=== PATIENT | male | born 1970 | race Two or more races ===

== ENCOUNTER 2024-09-13 14:41 | Inpatient (IN) | payer OTHER ==
[~2024-09-13] VITALS: Ht 167.6 cm; Wt 86.0 kg
--- NOTE | 2024-09-13 16:07 | ED.PDOC ---
HPI Comments 54 y/o M, accompanied by federal mirza presents to the ED for CC of chest pain. Patient states, that he has been experiencing substernal non-radiating chest pain x4days. Federal mirza report, patient was previously at [facility] when his location became compromised; and family began to try and contact patient. Patient was due to have a procedure at [facility] for symptoms; unknown of what kind. Patient denies palpitations, shortness of breath, headache, or dizziness. No other symptoms or modifying factors present at this time. Chief Complaint: Chest Pain Time Seen by MD: 16:00 Reviewed Notes: Nurses Notes, Medications, Allergies Allergies: Coded Allergies: NO KNOWN ALLERGIES (Unverified , 09/13/24) Information Source: Patient Mode of Arrival: Ambulatory Severity: Moderate Timing: Days Duration: Since onset Prehospital treatment: None Location: Substernal Radiation: No Radiation Onset: At Rest Cardiac Risk Factors: None PE Risk Factors: None History of: None Modifying Factors: Nothing Associated Signs and Symptoms: None Past Medical History PAST MEDICAL HISTORY: Denies Surgical History: Denies all surgeries Family History Family History: Unknown Social History Smoker: Non-Smoker Alcohol: Denies ETOH Use Drugs: Denies Drug Use Lives In: Other Constitutional: denies: chills, diaphoresis, fatigue, fever, malaise, sweats, weakness, others EENTM: denies: blurred vision, double vision, ear bleeding, ear discharge, ear drainage, ear pain, ear ringing, eye pain, eye redness, hearing loss, mouth pain, mouth swelling, nasal discharge, nose bleeding, nose congestion, nose pain, photophobia, tearing, throat pain, throat swelling, voice changes, others Respiratory: denies: cough, hemoptysis, orthopnea, SOB at rest, shortness of breath, SOB with excertion, stridor, wheezing, others Cardiovascular: reports: chest pain; denies: dizzy spells, diaphoresis, Dyspnea on exertion, edema, irregular heart beat, left arm pain, lightheadedness, palpitations, PND, syncope, others Gastrointestinal: denies: abdomen distended, abdominal pain, blood streaked bowels, constipated, diarrhea, dysphagia, difficulty swallowing, hematemesis, melena, nausea, poor appetite, poor fluid intake, rectal bleeding, rectal pain, vomiting, others Genitourinary: denies: burning, dysuria, flank pain, frequency, hematuria, incontinence, penile discharge, penile sore, pain, testicle pain, testicle swelling, urgency, others Neurological: denies: dizziness, fainting, headache, left sided numbness, left sided weakness, numbness, paresthesia, pre-existing deficit, right sided numbness, right sided weakness, seizure, speech problems, tingling, tremors, weakness, others Musculoskeletal: denies: back pain, gout, joint pain, joint swelling, muscle pain, muscle stiffness, neck pain, others Integumetry: denies: bruises, change in color, change in hair/nails, dryness, laceration, lesions, lumps, rash, wounds, others Allergic/Immunocompromised: denies: Difficulty Healing, Frequent Infections, Hives, Itching, others Hematologic/Lymphatic: denies: anemia, blood clots, easy bleeding, easy bruising, swollen glands, others Endocrine: denies: excessive hunger, excessive sweating, excessive thirst, excessive urination, flushing, intolerance to cold, intolerance to heat, unexplained weight gain, unexplained weight loss, others Psychiatric: denies: anxiety, bipolar disorder, depression, hopeless, panic disorder, schizophrenia, sleepless, suicidal, others All Other Systems: Reviewed and Negative Physical Exam General Appearance: Moderate Distress HEENT: Normal ENT Inspection, PERRL/EOMI, Other (Toothache) Neck: Full Range of Motion, Non-Tender, Normal, Normal Inspection Respiratory: Chest Non-Tender, Lungs Clear, No Accessory Muscle Use, No Respiratory Distress, Normal Breath Sounds Cardiovascular: No Edema, No JVD, No Murmur, No Gallop, Normal Peripheral Pulses, Regular Rate/Rhythm Breast Exam: Deferred Gastrointestinal: No Organomegaly, Non Tender, No Pulsatile Mass, Normal Bowel Sounds, Soft Genitalia: Deferred Pelvic: Deferred Rectal: Deferred Extremities: No calf tenderness, Normal capillary refill, Normal inspection, Normal range of motion, Non-tender, No pedal edema Neurologic: Alert, dealer relationship manager II-XII nml as Tested, No Motor Deficits, Normal Affect, Normal Mood, No Sensory Deficits Cerebellar Function: Normal Reflexes: Normal Skin: Dry, Normal Color, Warm Peripheral Pulses: 1+ carotid (R), 1+ carotid (L) Lymphatic: No Adenopathy EKG EKG : Pulse Rate (adult): 62 [place]: Normal Cardiac Rhythm: NSR Hypertrophy: LAE ST: Old, Inf, Infarct Was a procedure done? Was a procedure done?: No CP Differential Dx Differential Diagnosis: Angina, Anxiety / Panic Attack, Electrolyte Disorder, [place] Differential Diagnosis: Angina, Chest Wall Pain, Costochondritis, Esophageal reflux/spasm, Gastritis, Myocardial Infarction, Pneumonia X-Ray, Labs, Meds, VS Vital Signs Date Time Temp Pulse Resp B/P (MAP) Pulse Ox O2 Delivery O2 Flow Rate FiO2 09/13/24 17:14 62 09/13/24 14:55 62 09/13/24 14:42 97.6 66 14 124/85 (98) 96 97.6 Lab Test 09/13/24 17:08 09/13/24 16:07 Range/Units Troponin I High Sensitivity 244 *H 230 *H </=54 ng/L White Blood Count 9.5 4.4-10.8 10^3/uL Red Blood Count 5.81 4.5-5.90 10^6/uL Hemoglobin 17.8 H 13.5-17.5 g/dL Hematocrit 50.9 41.0-53.0 % Mean Corpuscular Volume 87.6 80.0-100.0 fL Mean Corpuscular Hemoglobin 30.7 28.0-32.0 pg Mean Corpuscular Hemoglobin Concent 35.1 32.0-36.0 g/dL Red Cell Distribution Width 13.1 11.8-14.3 % Platelet Count 264 140-450 10^3/uL Mean Platelet Volume 8.0 6.9-10.8 fL Neutrophils (%) (Auto) 57.7 37.0-80.0 % Lymphocytes (%) (Auto) 31.0 10.0-50.0 % Monocytes (%) (Auto) 8.5 0.0-12.0 % Eosinophils (%) (Auto) 2.3 0.0-7.0 % Basophils (%) (Auto) 0.5 0.0-2.0 % Neutrophils # (Auto) 5.5 1.6-8.6 10 ^3/uL Lymphocytes # (Auto) 2.9 0.4-5.4 10 ^3/uL Monocytes # (Auto) 0.8 0-1.3 10 ^3/uL Eosinophils # (Auto) 0.2 0-0.8 10 ^3/uL Basophils # (Auto) 0 0-0.2 10 ^3/uL Nucleated Red Blood Cells 0.2 % Prothrombin Time Pending Prothrombin Time INR Pending Activated Partial Thromboplast Time Pending Sodium Level 137 136-145 mmol/L Potassium Level 4.2 3.5-5.1 mmol/L Chloride Level 109 H 98-107 mmol/L Carbon Dioxide Level 17 L 20-31 mmol/L Anion Gap 11 5-15 Blood Urea Nitrogen 14 9-23 mg/dL Creatinine 0.94 0.700-1.30 mg/dL Glomerular Filtration Rate Calc 97 >90 mL/min BUN/Creatinine Ratio 14.9 10.0-20.0 Serum Glucose 116 H 74-106 mg/dL Calcium Level 10.1 8.7-10.4 mg/dL Magnesium Level 2.4 1.6-2.6 mg/dL Total Bilirubin 1.0 0.2-1.0 mg/dL Aspartate Amino Transferase (AST) 51 H 13-40 U/L Alanine Aminotransferase (ALT) 55 H 7-40 U/L Alkaline Phosphatase 102 46-116 U/L Total Protein 8.5 H 5.7-8.2 g/dL Albumin 4.8 3.2-4.8 g/dL Current Medications Medications (Trade) Dose Ordered Sig/Joycelyn Route Start Time Stop Time Status Last Admin Aspirin 162 mg ONCE ONCE PO 09/13/24 17:15 09/13/24 17:16 DC 09/13/24 17:44 Sodium Chloride 1,000 ml @ 150 mls/hr Q6H40M ONCE IV 09/13/24 17:15 09/13/24 23:54 09/13/24 17:44 X-Ray, Labs, Meds, VS Comment Course in the emergency department eventful patient came in because of chest pain is present in her escorted by police department with hammer Chest x-ray is normal EKG shows normal sinus rhythm at 62 Troponin 230 and 244 CBC normal INR pending Magnesium 2.4 Liver enzymes elevated Laborer to be consulted Time of 1ST Reevaluation: 16:30 Reevaluation 1ST: Unchanged Time of 2ND Reevaluation: 18:54 Reevaluation 2ND: Unchanged Patient Education/Counseling: Diagnosis, Treatment, Prognosis Family Education/Counseling: Diagnosis, Treatment, Prognosis, No Family Present Departure 1 Departure Time of Disposition: 18:54 Impression: Primary Impression: Chest pain Qualified Codes: I20.0 - Unstable angina Additional Impressions: Acute coronary syndrome with high troponin Tooth pain Ruled Out: Pneumonia Disposition: ADMITTED INPATIENT Admit to: Tele Condition: Guarded Critical Care Note Critical Care Time?: No Stability Stability form required: Yes Unstable for transfer: ICU, CCU, PCU, GIDEON, Telemetry monitoring (Telemetry m onitoring required), Requires medication (Requires Med for stabilization) Heart Score Heart Score: Heart Score Response (Comments) Value History Moderate Suspicious 1 EKG Normal 0 Age 45-64 1 Risk Factors 1 or 2 risk factors 1 Troponin >3 x's Normal limit 2 Total 5 I personally scribed for MONIE CALLAHAN MD ([email or web address]) on 09/13/24 at 16:07. Electronically submitted by Maye Montoya ([email or web address]). I personally scribed for MONIE CALLAHAN MD ([email or web address]) on 09/13/24 at 16:44. Electronically submitted by Maye Montoya ([email or web address]). MONIE CALLAHAN MD Sep 13, 2024 16:07
[2024-09-13 17:38] LABS: Albumin 4.8 g/dL (3.2-4.8); Alkaline Phosphatase 102 U/L (46-116); Anion Gap 11 (5-15); BUN/Creatinine Ratio 14.9 (10.0-20.0); Blood Urea Nitrogen 14 mg/dL (9-23); Calcium 10.1 mg/dL (8.7-10.4); Magnesium 2.4 mg/dL (1.6-2.6); Potassium 4.2 mmol/L (3.5-5.1); Sodium 137 mmol/L (136-145)
[2024-09-13 17:42] LABS: Alanine Aminotransferase 55 U/L (7-40); Aspartate Aminotransferase 51 U/L (13-40); Carbon Dioxide 17 mmol/L (20-31); Chloride 109 mmol/L (98-107); Glucose 116 mg/dL (74-106); Total Protein 8.5 g/dL (5.7-8.2)
[2024-09-13] MEDS: SODIUM CHLORIDE 0.9% 1,000 ML IV ONE (17:44)
[2024-09-13] MEDS: ASPirin 81 mg TAB PO ONE (17:44)
[2024-09-13 17:47] LABS: Basophils # (auto) 0 10 ^3/uL (0-0.2); Basophils % (auto) 0.5 % (0.0-2.0); Eosinophils # (auto) 0.2 10 ^3/uL (0-0.8); Eosinophils % (auto) 2.3 % (0.0-7.0); Hematocrit 50.9 % (41.0-53.0); Hemoglobin 17.8 g/dL (13.5-17.5); Lymphocytes # (auto) 2.9 10 ^3/uL (0.4-5.4); Mean Corpuscular Hemoglobin 30.7 pg (28.0-32.0); Mean Corpuscular Hgb Conc. 35.1 g/dL (32.0-36.0); Mean Corpuscular Volume 87.6 fL (80.0-100.0); Monocytes # (auto) 0.8 10 ^3/uL (0-1.3); Monocytes % (auto) 8.5 % (0.0-12.0); Neutrophils # (auto) 5.5 10 ^3/uL (1.6-8.6); Neutrophils % (auto) 57.7 % (37.0-80.0); Nucleated Red Blood Cells % 0.2 %; Platelet Count (auto) 264 10^3/uL (140-450); Red Blood Cells 5.81 10^6/uL (4.5-5.90); Red Cell Distribution Width 13.1 % (11.8-14.3); White Blood Cell 9.5 10^3/uL (4.4-10.8)
--- NOTE | 2024-09-13 17:51 | DVH ---
EXAM: XR Chest, 2 Views CLINICAL INDICATION: cp TECHNIQUE: Frontal and lateral views of the chest. COMPARISON: None FINDINGS: LUNGS AND PLEURAL SPACES: Unremarkable. No consolidation. No pneumothorax. HEART: Unremarkable. No cardiomegaly. MEDIASTINUM: Unremarkable. Normal mediastinal contour. BONES/JOINTS: Unremarkable. No acute fracture. OTHER FINDINGS: . None. IMPRESSION: No acute cardiopulmonary process.
--- NOTE | 2024-09-13 18:39 | ECG ---
[facility] Test Date: 2024-09-13 Test Time: 14:53:40 Pat Name: RAMON KOEHLER Department: ED Room: 0235T Gender: M City Recorder: HEIDI : 1970 Requested By: MONIE CALLAHAN Order Number: [id number] Reading MD: Jake Lambert Measurements Intervals [place] Rate: 62 P: 41 OK: 155 QRS: -45 QRSD: 106 T: -36 QT: 422 QTc: 429 Interpretive Statements Sinus rhythm Consider left atrial enlargement Inferior infarct, age indeterminate Consider anterolateral infarct Electronically Signed On 09-14-2024 8:37:09 PDT by Jake Lambert Please click the below link to view image of tracing.
[2024-09-13] MEDS ORDERED: ACETAMINOPHEN 325 MG TAB PO PRN (19:30)
[2024-09-13] MEDS ORDERED: ONDANSETRON HCL 4 MG/2 ML VIAL IV PRN (19:30)
[2024-09-13 19:32] VITALS: PULSE 76; RESP 16; O2SAT 98
[2024-09-13 20:01] LABS: INR 1.04 (0.9-1.15); Partial Thromboplastin Time 32.4 SEC (24.5-34.5)
[2024-09-13 20:04] LABS: LDL Cholesterol 86 mg/dL (< 100)
[2024-09-13 20:05] LABS: Cholesterol 133 mg/dL (< 200)
[2024-09-13 20:08] LABS: HDL Cholesterol 29 mg/dL (40-59); Triglycerides 220 mg/dL (< 150)
[2024-09-13] MEDS ORDERED: NITROGLYCERIN 0.4 MG SL TAB SL PRN (21:00)
[2024-09-13] MEDS ORDERED: MORPHINE SULFATE INJ 2 MG/ml SYRG IV PRN (21:00)
[2024-09-13 23:14] VITALS: BP 116/78; PULSE 62; RESP 19; TEMP 98.5; O2SAT 96
--- NOTE | 2024-09-13 23:36 | DVHINCON2 ---
Date of service: Sep 13, 2024 Referring Physician Marcelo Reason for Consultation Chest pain, Elevated troponin History of Present Illness This is a 54 year old male with no significant medical history who was brought in by EMS accompanied by S/O due to complaints of chest pain x 4 days. Federal guards at bedside report, patient was at [facility] when his location became compromised and the patient's family began attempting to contact the patient. EKG is NSR at 62. CBC normal. TROP 230 > 244 > 224. Chest x-ray showed NAD. Patient was admitted to the hospital. I am asked to consult on this patient. Allergies: Coded Allergies: NO KNOWN ALLERGIES (Unverified , 09/13/24) Current Medications Current Medications Medications (Trade) Dose Ordered Sig/Joycelyn Route PRN Reason Start Time Stop Time Status Last Admin Aspirin 81 mg DAILY PO 09/14/24 10:00 09/13/24 20:44 DC Ondansetron HCl (Zofran) 4 mg Q4HP PRN IV NAUSEA / VOMITING 09/13/24 19:30 09/13/24 20:44 DC Acetaminophen (Tylenol Tablet) 650 mg Q6HP PRN PO PAIN SCALE 1-3 OR TEMP>100.4 09/13/24 19:30 09/13/24 20:44 DC Nitroglycerin (Ntrostat Sublingual) 0.4 mg Q5MINP PRN SL FOR CHEST PAIN 09/13/24 21:00 Morphine Sulfate 2 mg Q30M PRN IV FOR CHEST PAIN 09/13/24 21:00 Enoxaparin Sodium (Lovenox) 40 mg DAILY SC 09/14/24 10:00 Aspirin 81 mg DAILY PO 09/14/24 10:00 Metoprolol Succinate (Toprol Xl) 25 mg DAILY PO 09/14/24 10:00 Review of Systems Constitutional: denies: chills, diaphoresis, fatigue, fever, malaise, sweats, weakness, others EENTM: denies: blurred vision, double vision, ear bleeding, ear discharge, ear drainage, ear pain, ear ringing, eye pain, eye redness, hearing loss, mouth pain, mouth swelling, nasal discharge, nose bleeding, nose congestion, nose pain, photophobia, tearing, throat pain, throat swelling, voice changes, others Respiratory: denies: cough, hemoptysis, orthopnea, SOB at rest, shortness of breath, SOB with excertion, stridor, wheezing, others Cardiovascular: reports: chest pain; denies: dizzy spells, diaphoresis, Dyspnea on exertion, edema, irregular heart beat, left arm pain, lightheadedness, palpitations, PND, syncope, others Gastrointestinal: denies: abdomen distended, abdominal pain, blood streaked bowels, constipated, diarrhea, dysphagia, difficulty swallowing, hematemesis, melena, nausea, poor appetite, poor fluid intake, rectal bleeding, rectal pain, vomiting, others Genitourinary: denies: burning, dysuria, flank pain, frequency, hematuria, incontinence, penile discharge, penile sore, pain, testicle pain, testicle swelling, urgency, others Neurological: denies: dizziness, fainting, headache, left sided numbness, left sided weakness, numbness, paresthesia, pre-existing deficit, right sided numbness, right sided weakness, seizure, speech problems, tingling, tremors, weakness, others Musculoskeletal: denies: back pain, gout, joint pain, joint swelling, muscle pain, muscle stiffness, neck pain, others Integumetry: denies: bruises, change in color, change in hair/nails, dryness, laceration, lesions, lumps, rash, wounds, others Allergic/Immunocompromised: denies: Difficulty Healing, Frequent Infections, Hives, Itching, others Hematologic/Lymphatic: denies: anemia, blood clots, easy bleeding, easy bruising, swollen glands, others Endocrine: denies: excessive hunger, excessive sweating, excessive thirst, excessive urination, flushing, intolerance to cold, intolerance to heat, unexplained weight gain, unexplained weight loss, others Psychiatric: denies: anxiety, bipolar disorder, depression, hopeless, panic disorder, schizophrenia, sleepless, suicidal, others All Other Systems: Reviewed and Negative Vital Signs Vital Signs Date Time Temp Pulse Resp B/P (MAP) Pulse Ox O2 Delivery O2 Flow Rate FiO2 09/13/24 19:32 76 16 127/91 (103) 98 09/13/24 19:32 Room Air* 0 21 09/13/24 14:42 97.6 97.6 Physical Exam GENERAL: Alert and oriented x 3. No acute distress. EYES: PERRL, EOMI. Anicteric. HENT: Moist mucous membranes. LUNGS: Clear to auscultation bilaterally. CARDIOVASCULAR: Regular rate and rhythm. ABDOMEN: Soft, nontender and nondistended. EXTREMITIES: No edema. NEUROLOGIC: No focal neurological deficits. SKIN: Warm, dry. Labs/Diagnostic Data Labs Test 09/13/24 19:18 09/13/24 16:07 Range/Units Prothrombin Time 11.0 9.3-11.8 sec Prothrombin Time INR 1.04 0.9-1.15 Activated Partial Thromboplast Time 32.4 24.5-34.5 SEC Troponin I High Sensitivity 224 *H </=54 ng/L Triglycerides Level 220 H < 150 mg/dL Cholesterol Level 133 < 200 mg/dL LDL Cholesterol 86 < 100 mg/dL HDL Cholesterol 29 L 40-59 mg/dL Thyroid Stimulating Hormone (TSH) 1.78 0.55-4.78 uIU/mL White Blood Count 9.5 4.4-10.8 10^3/uL Red Blood Count 5.81 4.5-5.90 10^6/uL Hemoglobin 17.8 H 13.5-17.5 g/dL Hematocrit 50.9 41.0-53.0 % Mean Corpuscular Volume 87.6 80.0-100.0 fL Mean Corpuscular Hemoglobin 30.7 28.0-32.0 pg Mean Corpuscular Hemoglobin Concent 35.1 32.0-36.0 g/dL Red Cell Distribution Width 13.1 11.8-14.3 % Platelet Count 264 140-450 10^3/uL Mean Platelet Volume 8.0 6.9-10.8 fL Neutrophils (%) (Auto) 57.7 37.0-80.0 % Lymphocytes (%) (Auto) 31.0 10.0-50.0 % Monocytes (%) (Auto) 8.5 0.0-12.0 % Eosinophils (%) (Auto) 2.3 0.0-7.0 % Basophils (%) (Auto) 0.5 0.0-2.0 % Neutrophils # (Auto) 5.5 1.6-8.6 10 ^3/uL Lymphocytes # (Auto) 2.9 0.4-5.4 10 ^3/uL Monocytes # (Auto) 0.8 0-1.3 10 ^3/uL Eosinophils # (Auto) 0.2 0-0.8 10 ^3/uL Basophils # (Auto) 0 0-0.2 10 ^3/uL Nucleated Red Blood Cells 0.2 % Sodium Level 137 136-145 mmol/L Potassium Level 4.2 3.5-5.1 mmol/L Chloride Level 109 H 98-107 mmol/L Carbon Dioxide Level 17 L 20-31 mmol/L Anion Gap 11 5-15 Blood Urea Nitrogen 14 9-23 mg/dL Creatinine 0.94 0.700-1.30 mg/dL Glomerular Filtration Rate Calc 97 >90 mL/min BUN/Creatinine Ratio 14.9 10.0-20.0 Serum Glucose 116 H 74-106 mg/dL Calcium Level 10.1 8.7-10.4 mg/dL Magnesium Level 2.4 1.6-2.6 mg/dL Total Bilirubin 1.0 0.2-1.0 mg/dL Aspartate Amino Transferase (AST) 51 H 13-40 U/L Alanine Aminotransferase (ALT) 55 H 7-40 U/L Alkaline Phosphatase 102 46-116 U/L Total Protein 8.5 H 5.7-8.2 g/dL Albumin 4.8 3.2-4.8 g/dL Assessment Chest pain. Elevated troponin. HTN. Plan/Recommendation I agree with your ongoing assessment and care of plan. Aspirin, Metoprolol. DVT prophylactics. Nitro SL. Morphine for pain management. Additional plan as per the hospital course. A total of 45 minutes was spent reviewing the patient record, examining the patient, making a diagnostic and therapeutic plan, discussing this plan with medical personnel, following up on diagnostic studies and following the patient for clinical stability excluding any and all procedures. At least 50% of this time was spent in direct, [id number] contact. Plan discussed with: Patient YUDI DANGELO MD Sep 13, 2024 22:51
[2024-09-14] VITALS (11 sets, daily range): BP systolic 108–124; BP diastolic 69–78; PULSE 54–64; RESP 14–20; TEMP 97.5–98.3; O2SAT 95–98
[2024-09-14] MEDS: METOPROLOL SUCCINATE XL 50 MG TAB PO SCH (09:31)
[2024-09-14] MEDS: ASPirin 81 mg TAB PO SCH (09:31)
[2024-09-14] MEDS: ENOXAPARIN SOD 40 MG/0.4 ML SYRINGE SC SCH (09:31)
[2024-09-14] MEDS ORDERED: ASPirin 81 mg TAB PO SCH (10:00)
--- NOTE | 2024-09-14 12:58 | DVHHP ---
ADMIT DATE: 09/14/2024 ATTENDING PHYSICIAN: Kevyn Robertson MD CHIEF COMPLAINT: Chest pain. HISTORY OF PRESENT ILLNESS: This is a 54-year-old male, P inmate, who was initially brought to [facility] Emergency Room with complaints of chest pain after which he was admitted. He had workup, which included troponins were slightly elevated. EKG showed inverted T-waves laterally and MyoScan showed reversible defect. The patient was scheduled for an angiogram today, but due to a breach in security, the patient was discharged from [facility]. I now was informed by the [facility] that he was taken to [facility]. The patient is now admitted for continued management. He does not have any active chest pain at this time. He denies any cough, shortness of breath, no fever. 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 He has hypertension. He has BPH and GERD. PAST SURGICAL HISTORY: Denies ever having coronary stents placed. FAMILY HISTORY: Mother has heart disease. SOCIAL HISTORY: He has 10-pack years of smoking. Occasional alcohol use. Denies any drug use. He is . He has 4 children. He has been incarcerated 2 years with 1 month left to go. REVIEW OF SYSTEMS: GENERAL: Denies any weight changes. HEENT: Denies any loss of consciousness or headache. CARDIOVASCULAR: As per HPI. RESPIRATORY: Denies cough, shortness of breath, or hemoptysis. GI: Denies nausea or vomiting. : Noncontributory. NEURO: Denies any focal deficits. PHYSICAL EXAM: VITAL SIGNS: His temperature is 98.5, blood pressure 116/78, heart rate of 62, respiratory rate of 19, O2 saturation is 96% on room air. HEENT: Normocephalic, anicteric sclerae, pink conjunctivae. EOMI. NECK: Supple. No JVD, mass, or bruit. CHEST: Good equal excursion bilateral, nontender. HEART: S1 and S2 regular, without click, murmur, or gallop. LUNGS: Good equal air exchange bilateral. Clear to auscultation. ABDOMEN: Soft, nondistended, nontender. No mass, guarding, or rebound. NEUROLOGIC: He is awake, alert, and oriented x 4 without any focal deficits. LAB DATA: WBC 9.5, hemoglobin 17.8, and platelets 264. Sodium 137, potassium is 4.2, BUN , creatinine 0.9, glucose of 116. Troponin is 244 and repeat is 224. LDL is 86 and TSH is 1.78. Chest x-ray, no acute cardiopulmonary disease. EKG without any acute changes. ASSESSMENT: * Chest pain, rule out HI. * Acute coronary syndrome. PLAN: Admit to tele. This is stable. Regular diet. IV Hep-Lock. Cardiology consult. Aspirin 81 mg daily, Lovenox, metoprolol and analgesics. MD NICOLLE Duff/KRISTIAN/MACY TID: [id number] RECEIPT: [id number]
[2024-09-14] MEDS: HEPARIN IN NS 1000Units/500mL 1,500 ML ONE (17:06)
[2024-09-14] MEDS: IODIXANOL 320MG/ML 100ML BTL IV ONE (17:06)
[2024-09-14] MEDS: ANGIOMAX 250 MG VIAL IV ONE (17:12)
[2024-09-14] MEDS: VERAPAMIL 2.5MG/ML INJ 2ML VIAL IV ONE (17:12)
[2024-09-14] MEDS: fentaNYL CITRATE 100 MCG/2 ML VL ONE (17:12)
[2024-09-14] MEDS: SODIUM CHL 0.9% 0 ML ONE (17:13)
[2024-09-14] MEDS: LIDOCAINE 2%HCL (LOCAL ANESTH.) INJ 20ML MDV ONE (17:13)
[2024-09-14] MEDS: MIDAZOLAM HCL 2MG/2ML 2ml VIAL (1mg/ml) ONE (17:13)
[2024-09-14] MEDS: HEPARIN SODIUM (PORCINE) 5000 UNITS/ML 1ML VIAL ONE (17:18)
--- NOTE | 2024-09-14 21:54 | DVHPN2 ---
Progress Note - Dictate Date Seen: September 14, 2024 Medical Necessity Reason Pt with a Central, PICC or Fol: No Subjective Patient was seen and evaluated in follow up. Patient is complaining of chest pain. Guards are at bedside. Patient underwent coronary angio, was found to have critical triple vessel disease. bradycardic in the 50's. Telemetry reviewed. vital signs Vital Sign Date Time Temp Pulse Resp B/P (MAP) Pulse Ox O2 Delivery O2 Flow Rate FiO2 09/14/24 09:31 64 124/73 09/14/24 09:00 97.8 20 97 97.8 09/14/24 08:00 Room Air* 0 21 Total Intake and Output 09/13/24 09/13/24 09/14/24 15:00 23:00 07:00 Intake Total 240 ml Balance 240 ml medications Current Medications Medications Dose Ordered Sig/Joycelyn Route Start Time Stop Time Status Last Admin Dose Admin Nitroglycerin 0.4 mg Q5MINP PRN SL 09/13/24 21:00 Morphine Sulfate 2 mg Q30M PRN IV 09/13/24 21:00 Enoxaparin Sodium 40 mg DAILY SC 09/14/24 10:00 09/14/24 09:31 40 MG Aspirin 81 mg DAILY PO 09/14/24 10:00 09/14/24 09:31 81 MG Metoprolol Succinate 25 mg DAILY PO 09/14/24 10:00 09/14/24 09:31 25 MG objective GENERAL: Alert and oriented x 3. No acute distress. EYES: PERRL, EOMI. Anicteric. HENT: Moist mucous membranes. LUNGS: Clear to auscultation bilaterally. CARDIOVASCULAR: Regular rate and rhythm. ABDOMEN: Soft, nontender and nondistended. EXTREMITIES: No edema. NEUROLOGIC: No focal neurological deficits. SKIN: Warm, dry. laboratory and microbiology Laboratory Tests 09/13/24 16:07 Test 09/13/24 16:07 Range/Units Serum Glucose 116 H 74-106 mg/dL Problem List Chest pain. Elevated troponin. HTN. Critical triple vessel disease. Assessment/Plan Continued all current supportive medical care. [place] for pain management. Aspirin, Metoprolol. DVT prophylactics. Nitro SL. Additional plan as per the hospital course. Plan discussed with: Patient YUDI DANGELO MD September 14, 2024 12:20
--- NOTE | 2024-09-14 23:59 | DVHOP ---
DATE OF SURGERY: 09/14/2024 TECHNIQUE PERFORMED: * Emergency case. * Ultrasound of right radial artery. * Management of conscious sedation. * Ultrasound-guided insertion of 6-Namibian arterial line in the right radial artery. * Left heart cath. * Left ventriculogram. * Cheesh-Na selective left and right coronary angiography. COMPLICATIONS: None. ASSISTANTS: Assisted by our staff here is Bernard Medina and other study assistant is Karolyn. INDICATIONS: The patient has a large reversible ischemia noted in the anterior apical wall and also involving the lateral wall. DESCRIPTION OF PROCEDURE: The procedure risks, benefits discussed in a standard manner. The patient had been brought to our lab. There was a right radial area thoroughly cleaned with soap and Betadine and 6-Namibian arterial line had been placed after doing ultrasound and TIG catheter 5-Namibian 4.0 was passed, unable to engage well in the left groin system. So now we have obtained a right coronary angiography subsequently now with the help of the JL3.5 guiding catheter. Left coronary angiography was done subsequently with the help of pigtail catheter and complete left heart cath had been done. The left ventriculogram was done in the right anterior oblique view, total of 20 mL dye. Post LV-gram, left ventricular angiography had been performed with the help of pull-through technique. Aortic pressure was also performed. J-wire was passed. The pigtail catheter also has been discontinued. Procedure completed. IMPRESSION: * The patient's right coronary artery 100% chronically occluded in region. SONNY grade 0 flow has been noted. There is also poor little filling of the mid region of the right coronary artery followed by SONNY grade 0 flow. The patient's left main is normal. * The left main divided in the left anterior descending artery and moderately large circumflex artery. At the left anterior descending artery at the junction of the proximal and mid region is narrowed in the range of 99%. SONNY grade 2 flow has been noted. * The obtuse marginal artery has been circumferentially divided into circumflex and obtuse marginal artery. The obtuse marginal artery has been normal. The circumflex artery has underlying critical narrowing has been noted from the site of the bifurcation to almost 15 mm in length. There is also extensive left coronary system all the way to distal region of the right coronary artery. There is excellent filling of the posterior descending artery and posterolateral branch with the help of the left coronary artery, which is retrograde. The ejection fraction of the left ventricle is in the range of 40%. Inferior wall hypokinesis has been noted. CONCLUSION: * This patient with critical triple-vessel coronary artery disease has been described above. * Ejection fraction reduced 40%, inferior wall major hypokinesis. PLAN OF ACTION: The patient will be referred for coronary artery bypass graft surgery. Rosie Hawk MD MP/EVETTE/MIC TID: [id number] RECEIPT: [id number] MTDD
[2024-09-15] VITALS (8 sets, daily range): BP systolic 113–131; BP diastolic 74–79; PULSE 60–95; RESP 17–19; TEMP 97.6–98.3; O2SAT 94–100
--- NOTE | 2024-09-15 12:15 | DVHPN ---
DATE: 09/15/2024 ATTENDING PHYSICIAN: Dr. Kevyn Robertson SUBJECTIVE: The patient is lying in bed, watching TV. He is comfortable. He is in no active distress. He denies any chest pain at this time. He denies any complaints. No untoward events have been noted. I informed the patient that results of the coronary angiogram showed he had multiple vessels which were critically stenosed and it is the recommendation of the etl software engineer that he be evaluated for the bypass surgery. I asked the patient if he is willing and he responded with yes. OBJECTIVE: VITAL SIGNS: Temperature is 98.3 with a blood pressure of 127/77, heart rate of 60, respiratory rate of 18, O2 saturation 100% on room air. HEART: S1, S2 regular. No click, murmur, or gallop. LUNGS: Good equal air exchange bilateral. Clear to auscultation. ABDOMEN: Soft, benign. NEUROLOGIC: Awake, alert, and oriented x4 without focal deficits. LABORATORY DATA: Angiogram showed RCA 100% occluded, left main is normal, LAD in the proximal and mid region in the range of 99% stenosed, circumflex shows critical stenosis and has been recommended by Cardiology that the patient be evaluated for possible CABG. ASSESSMENT: * Coronary artery disease with critical stenosis. * Chest pain. * Acute coronary syndrome. PLAN: We will request for social psychologist for transfer to higher level of care requiring Cardiothoracic Surgery evaluation for possible CABG. In the meantime, we will continue with the aspirin for cardio protection, Lovenox with DVT prophylaxis, metoprolol for hypertension, and analgesics for pain. I have recommended the patient to ambulate as much as possible. MD NICOLLE Duff/ISHA TID: [id number] RECEIPT: [id number]
--- NOTE | 2024-09-15 19:00 | DVHPN2 ---
Progress Note - Dictate Date Seen: September 15, 2024 Medical Necessity Reason Pt with a Central, PICC or Fol: No Subjective Patient was seen and evaluated in follow up. Patient is complaining of chest pain. Guards are at bedside. Patient is pending transfer to [facility][1] for Cardiothoracic Surgery evaluation for possible CABG. Telemetry reviewed. vital signs Vital Sign Date Time Temp Pulse Resp B/P (MAP) Pulse Ox O2 Delivery O2 Flow Rate FiO2 09/15/24 09:02 60 127/77 09/15/24 09:00 98.3 18 100 98.3 09/15/24 08:00 Room Air* 0 21 Total Intake and Output 09/14/24 09/14/24 09/15/24 15:00 23:00 07:00 Intake Total 1220 ml 300 ml Balance 1220 ml 300 ml medications Current Medications Medications Dose Ordered Sig/Joycelyn Route Start Time Stop Time Status Last Admin Dose Admin Nitroglycerin 0.4 mg Q5MINP PRN SL 09/13/24 21:00 Enoxaparin Sodium 40 mg DAILY SC 09/14/24 10:00 09/15/24 09:02 40 MG Aspirin 81 mg DAILY PO 09/14/24 10:00 09/15/24 09:02 81 MG Metoprolol Succinate 25 mg DAILY PO 09/14/24 10:00 09/15/24 09:02 25 MG Acetaminophen/ Hydrocodone Bitart 1 tab Q4HP PRN PO 09/14/24 12:30 Amoxicillin/ Clavulanate Potassium 875 mg Q12HR PO 09/15/24 22:00 objective GENERAL: Alert and oriented x 3. No acute distress. EYES: PERRL, EOMI. Anicteric. HENT: Moist mucous membranes. LUNGS: Clear to auscultation bilaterally. CARDIOVASCULAR: Regular rate and rhythm. ABDOMEN: Soft, nontender and nondistended. EXTREMITIES: No edema. NEUROLOGIC: No focal neurological deficits. SKIN: Warm, dry. laboratory and microbiology Laboratory Tests 09/13/24 16:07 Test 09/13/24 16:07 Range/Units Serum Glucose 116 H 74-106 mg/dL Problem List Chest pain. Elevated troponin. HTN. Critical triple vessel disease. Assessment/Plan Continued all current supportive medical care. [place] for pain management. Aspirin, Metoprolol. DVT prophylactics. Nitro SL. Additional plan as per the hospital course. Plan discussed with: Patient YUDI DANGELO MD September 15, 2024 12:11
[2024-09-15] MEDS: AMOXICILLIN/CLAVUL 875 MG TAB PO SCH (20:36)
[2024-09-16] VITALS (8 sets, daily range): BP systolic 98–129; BP diastolic 71–79; PULSE 54–82; RESP 14–18; TEMP 97.8–98.1; O2SAT 93–96
[2024-09-16] MEDS: HYDROcodone-ACET 10/325MG TAB PO PRN (10:30)
--- NOTE | 2024-09-16 15:31 | DVHPN2 ---
Progress Note - Dictate Date Seen: September 16, 2024 Medical Necessity Reason Pt with a Central, PICC or Fol: No Subjective Patient was seen and evaluated in follow up. Patient is complaining of chest pain. Guards are at bedside. Patient is awaiting for transfer to [facility]. Telemetry reviewed. vital signs Vital Sign Date Time Temp Pulse Resp B/P (MAP) Pulse Ox O2 Delivery O2 Flow Rate FiO2 09/16/24 10:31 78 129/78 09/16/24 08:53 97.8 16 95 97.8 09/16/24 07:49 Room Air* 0 21 Total Intake and Output 09/15/24 09/15/24 09/16/24 15:00 23:00 07:00 Intake Total 50 ml 100 ml Output Total 350 ml Balance 50 ml -250 ml medications Current Medications Medications Dose Ordered Sig/Joycelyn Route Start Time Stop Time Status Last Admin Dose Admin Nitroglycerin 0.4 mg Q5MINP PRN SL 09/13/24 21:00 Enoxaparin Sodium 40 mg DAILY SC 09/14/24 10:00 09/16/24 10:00 40 MG Aspirin 81 mg DAILY PO 09/14/24 10:00 09/16/24 10:28 81 MG Metoprolol Succinate 25 mg DAILY PO 09/14/24 10:00 09/16/24 10:31 25 MG Acetaminophen/ Hydrocodone Bitart 1 tab Q4HP PRN PO 09/14/24 12:30 09/16/24 10:30 1 TAB Amoxicillin/ Clavulanate Potassium 875 mg Q12HR PO 09/15/24 22:00 09/16/24 10:27 875 MG objective GENERAL: Alert and oriented x 3. No acute distress. EYES: PERRL, EOMI. Anicteric. HENT: Moist mucous membranes. LUNGS: Clear to auscultation bilaterally. CARDIOVASCULAR: Regular rate and rhythm. ABDOMEN: Soft, nontender and nondistended. EXTREMITIES: No edema. NEUROLOGIC: No focal neurological deficits. SKIN: Warm, dry. laboratory and microbiology Laboratory Tests 09/13/24 16:07 Test 09/13/24 16:07 Range/Units Serum Glucose 116 H 74-106 mg/dL Problem List Chest pain. Elevated troponin. HTN. Critical triple vessel disease. Assessment/Plan Continued all current supportive medical care. [place] for pain management. Aspirin, Metoprolol. DVT prophylactics. Nitro SL. Additional plan as per the hospital course. Plan discussed with: Patient YUDI DANGELO MD September 16, 2024 12:18
[2024-09-16] MEDS ORDERED: ASPI-325 PO (15:32)
[2024-09-16] MEDS ORDERED: AUG875T PO (15:32)
[2024-09-16] MEDS ORDERED: METO-6 PO (15:32)
--- NOTE | 2024-09-16 17:01 | DVHDS ---
DATE OF DISCHARGE: 09/16/2024 DISCHARGE/TRANSFER SUMMARY ATTENDING PHYSICIAN: Kevyn Robertson MD CHIEF COMPLAINT ON ADMISSION: Chest pain. HISTORY OF PRESENT ILLNESS: This is a 54-year-old male [employer] inmate, initially brought to [facility] Emergency Room with complaints of chest pain. He was admitted. Workup which included troponin was slightly elevated. EKG showed inverted T-wave laterally and my scan showed reversible defect. The patient was scheduled for an angiogram, but prior to the performance of the angiogram, there was a breach in security and the patient was discharged from [facility] and he was later taken to [facility] Emergency Room for which he was subsequently admitted for chest pain. ADMITTING DIAGNOSES: * Chest pain. * Acute coronary syndrome. * Tooth pain/toothache. HOSPITAL COURSE: He was admitted to [facility] in stable condition. Started on a regular diet. He was started on aspirin, Lovenox, metoprolol, and analgesics. Cardiology consult with Dr. Rosie Hawk was obtained. The patient was taken to the cardiac open hearth laborer based on the findings of the previous workup at [facility] and coronary angiography revealed critical stenosis of the RCA, LAD and circumflex found to have critical stenosis at which point Cardiology consult recommended for transfer to higher level of care for CABG. The patient was referred to [facility], which he was accepted by and he is now being discharged and transferred to [facility] for further management. DISCHARGE DIAGNOSES: * Chest pain. * Acute coronary syndrome. * Coronary artery disease. * Toothache. DISCHARGE MEDICATIONS: Continued on aspirin, metoprolol, Augmentin, and nitro p.r.n. CONDITION ON DISCHARGE: Stable. MD NICOLLE Duff/JUHI/MACY TID: [id number] RECEIPT: [id number]
[2024-09-17] VITALS (8 sets, daily range): BP systolic 102–124; BP diastolic 63–82; PULSE 60–74; RESP 17–20; TEMP 97–98.3; O2SAT 94–98
--- NOTE | 2024-09-17 20:28 | DVHPN ---
DATE: 09/17/2024 ATTENDING PHYSICIAN: Dr. Kevyn Robertson. SUBJECTIVE: The patient is lying in bed, watching TV. He is awake, alert, and in no acute distress. He denies any complaints at this time but has not gotten out of bed and ambulated. OBJECTIVE: VITAL SIGNS: His temperature is 97.9, blood pressure is 118/78, heart rate is 60, respiratory rate is 17 and O2 saturation is 96% on room air. ASSESSMENT: * Coronary artery disease with critical stenosis. * Chest pain. * Acute coronary syndrome. PLAN: We will continue with amoxicillin for the toothache, aspirin and metoprolol for cardiac protection, Lovenox for DVT prophylaxis, and [place] for pain. MD NICOLLE Duff/KANIKA TID: [id number] RECEIPT: [id number]
--- NOTE | 2024-09-17 21:58 | DVHPN2 ---
Progress Note - Dictate Date Seen: September 17, 2024 Medical Necessity Reason Pt with a Central, PICC or Fol: No Subjective Patient was seen and evaluated in follow up. Guards at bedside. Patient is resting in bed. Patient denies any complaints. Patient has not gotten out of bed. Patient was accepted to [facility], awaiting bed. Telemetry reviewed. vital signs Vital Sign Date Time Temp Pulse Resp B/P (MAP) Pulse Ox O2 Delivery O2 Flow Rate FiO2 09/17/24 09:22 69 114/82 09/17/24 09:05 97.5 17 98 97.5 09/17/24 08:00 Room Air* 0 21 Total Intake and Output 09/16/24 09/16/24 09/17/24 15:00 23:00 07:00 Intake Total 800 ml 300 ml Output Total 350 ml 300 ml Balance 450 ml 0 ml medications Current Medications Medications Dose Ordered Sig/Joycelyn Route Start Time Stop Time Status Last Admin Dose Admin Nitroglycerin 0.4 mg Q5MINP PRN SL 09/13/24 21:00 Enoxaparin Sodium 40 mg DAILY SC 09/14/24 10:00 09/17/24 09:23 40 MG Aspirin 81 mg DAILY PO 09/14/24 10:00 09/17/24 09:22 81 MG Metoprolol Succinate 25 mg DAILY PO 09/14/24 10:00 09/17/24 09:22 25 MG Acetaminophen/ Hydrocodone Bitart 1 tab Q4HP PRN PO 09/14/24 12:30 09/16/24 10:30 1 TAB Amoxicillin/ Clavulanate Potassium 875 mg Q12HR PO 09/15/24 22:00 09/17/24 09:22 875 MG objective GENERAL: Alert and oriented x 3. No acute distress. EYES: PERRL, EOMI. Anicteric. HENT: Moist mucous membranes. LUNGS: Clear to auscultation bilaterally. CARDIOVASCULAR: Regular rate and rhythm. ABDOMEN: Soft, nontender and nondistended. EXTREMITIES: No edema. NEUROLOGIC: No focal neurological deficits. SKIN: Warm, dry. laboratory and microbiology Laboratory Tests 09/13/24 16:07 Test 09/13/24 16:07 Range/Units Serum Glucose 116 H 74-106 mg/dL Problem List Chest pain. Elevated troponin. HTN. Coronary artery disease with critical stenosis. Acute coronary syndrome. Assessment/Plan Continued all current supportive medical care. [place] for pain management. Oral antibiotics as ordered. Aspirin, Metoprolol. DVT prophylactics. Nitro SL. Additional plan as per the hospital course. Plan discussed with: Patient YUDI DANGELO MD September 17, 2024 13:53
== END 2024-09-17 23:25 | disposition short-term general hospital (02) | DRG 287 ==
LOC: ER 14:45 → EEVIPCON 14:45 → OVERFLOW 19:27 → TELE-EAST 22:59 → TELE-WESTW 09-15 13:30
PROVIDERS: ADMIT Internal Medicine; ATTEND Internal Medicine
PROC: 4A023N7 Measurement of Cardiac Sampling and Pressure, Left Heart, Percutaneous Approach (ICD-10-PCS; principal; 2024-09-14)
PROC: B211YZZ Fluoroscopy of Multiple Coronary Arteries using Other Contrast (ICD-10-PCS; 2024-09-14)
PROC: B215YZZ Fluoroscopy of Left Heart using Other Contrast (ICD-10-PCS; 2024-09-14)
DX: I25.10 Atherosclerotic heart disease of native coronary artery without angina pectoris (principal); I24.9 Acute ischemic heart disease, unspecified; I10 Essential (primary) hypertension; K08.89 Other specified disorders of teeth and supporting structures; N40.0 Benign prostatic hyperplasia without lower urinary tract symptoms; K21.9 Gastro-esophageal reflux disease without esophagitis; Z95.1 Presence of aortocoronary bypass graft; Z79.82 Long term (current) use of aspirin; I25.2 Old myocardial infarction; Z79.899 Other long term (current) drug therapy; Z82.49 Family history of ischemic heart disease and other diseases of the circulatory system
CPT/HCPCS: 36415; 71046; 80053; 80061; 83735; 84443; 84484; 85025; 85610; 85730; 87081; 93005; 93458; 96360; 99152; G0378; J2250; Q9967